=== PATIENT | female | born 1975 | race American Indian/Alaskan Native ===

== ENCOUNTER 2021-09-15 08:59 | Day surgery (SDC) | payer OTHER ==
[2021-09-15] MEDS ORDERED: LACTATED RINGERS 1,000 ML ONE (09:33)
--- NOTE | 2021-09-15 09:51 | Anesthesia Day of Surgery ---
Anesthesia Day of Surgery - Day of Surgery Patient Examined: Yes Patient H&P Reviewed: Yes Patient is NPO: Yes
--- NOTE | 2021-09-15 09:52 | Anesthesia Consultation ---
Anesthesia Consult and Med Hx Date of service: 09/15/21 - Airway Anesthetic Teeth Evaluation: Good ROM Head & Neck: Adequate Mental/Hyoid Distance: Adequate Mallampati Class: Class II Intubation Access Assessment: Good - Pre-Operative Health Status ASA Pre-Surgery Classification: ASA2 Proposed Anesthetic Plan: General - Pulmonary Hx Smoking: No Hx Sleep Apnea: No (EB PRE SCREEN LOW RISK) - Cardiovascular System Hx Hypertension: Yes (X 3 YRS) - Central Nervous System Hx Back Pain: Yes (FROM STONE) Hx Psychiatric Problems: No - Gastrointestinal Hx Gastroesophageal Reflux Disease: No - Hematic Hx Anemia: Yes (NOT RECENT) Hx Sickle Cell Disease: No - Other Systems Hx Cancer: No Hx Obesity: No
[2021-09-15] MEDS ORDERED: HYDROmorphone 1 MG/1 ML INJ IV PRN ×2 (10:00)
[2021-09-15] MEDS ORDERED: LACTATED RINGERS 1,000 ML IV SCH (10:00)
[2021-09-15] MEDS ORDERED: MIDAZOLAM 2 MG/2 ML INJ IV NR (10:00)
[2021-09-15] MEDS ORDERED: ONDANSETRON 4 MG/2 ML INJ IV PRN (10:00)
[2021-09-15] MEDS ORDERED: ceFAZolin/STERILE WATER 2 GM/20 ML SYRINGE IV NR (11:00)
[2021-09-15] MEDS ORDERED: propofoL 200 MG/20 ML VIAL IV ONE (11:38)
[2021-09-15] MEDS ORDERED: fentaNYL 100 MCG/2 ML INJ ONE (11:38)
[2021-09-15] MEDS ORDERED: ONDANSETRON 4 MG/2 ML INJ ONE (11:38)
[2021-09-15] MEDS ORDERED: LIDOCAINE MPF (2%) 20 MG/1 ML VIAL 5 ML ONE (11:38)
[2021-09-15] MEDS ORDERED: WATER FOR IRRIG STERILE 2000 ML IR ONE (12:47)
--- NOTE | 2021-09-15 12:50 | Short Stay Summary ---
Short Stay Documentation Date of service: 09/15/21 - History H&P: obtained from office - Allergies and Medications Current Medications: Allergies No Known Allergies Allergy (Verified 09/13/21 15:09) Home Medications Medication Instructions Recorded Confirmed Last Taken Type Ibuprofen [Motrin] 800 mg PO Q8HR PRN 09/13/21 09/13/21 Unknown History Losartan [Cozaar] 100 mg PO QDAY 09/13/21 09/13/21 Unknown History Rosuvastatin Calcium [Crestor] 20 mg PO DAILY 09/13/21 09/13/21 Unknown History Zolpidem [Ambien] 5 mg PO QHS PRN 09/13/21 09/13/21 Unknown History oxyCODONE /ACETAMINOPHEN [Percocet 1 tab PO Q6HR PRN 09/13/21 09/13/21 Unknown History 5/325] traMADoL [Ultram] 50 mg PO Q4HR PRN 09/13/21 09/13/21 Unknown History Active Medications Cefazolin Sodium (Cefazolin/Sterile Water 2 Gm/20 Ml Syringe) 2 gm IV PREOP NR Stop: 09/15/21 13:00 Hydromorphone HCl (Hydromorphone 1 Mg/1 Ml Inj) 0.25 mg IV Q10MIN PRN PRN Reason: Pain, Moderate (4-6) Stop: 09/15/21 20:00 Hydromorphone HCl (Hydromorphone 1 Mg/1 Ml Inj) 0.5 mg IV Q10MIN PRN PRN Reason: Pain , Severe (7-10) Lactated Ringer's (Lactated Ringers) 1,000 mls @ 125 mls/hr IV DIRECT DALY Last Admin: 09/15/21 10:38 Dose: 125 mls/hr Midazolam HCl (Midazolam 2 Mg/2 Ml Inj) 2 mg IV PREOP NR Stop: 09/15/21 23:59 Last Admin: 09/15/21 10:36 Dose: 2 mg - Brief post op/procedure progress note Date of procedure: 09/15/21 Pre-op diagnosis: bilat hyro Post-op diagnosis: same Procedure: cysto, bilat rpg, left ureteroscopy stent with external string Anesthesia: GETA Surgeon: JANE DIXON Estimated blood loss: none Pathology: none Condition: stable - Hospital course Hospital course: bactrim, norco, post op info on chart - Disposition Disposition: 01 HOME / SELF CARE / HOMELESS Short Stay Discharge Plan Follow up with: CHEYENNE JUNIOR MD [Primary Care Provider] - 7 Days
--- NOTE | 2021-09-15 14:08 | Fluoroscopy Report ---
FLUOROSCOPY RETROGRADE UROGRAPHY INDICATION: HYDRONEPHROSIS. COMPARISON: None. IMPRESSION: 16.2 seconds of fluoroscopy time was provided by radiology during retrograde urography b y the urologist. 10 fluoroscopic images are presented demonstrating bilateral retrograde pyelograms, left ureteroscopy and placement of a left ureteral stent. Signer Name: Marlon Thomas Jr, MD Signed: 09/15/2021 2:03 PM Workstation Name: [id number]
[2021-09-15 14:16] VITALS: BP 148/82
--- NOTE | 2021-09-15 14:43 | Operative Report ---
DATE OF SURGERY: 09/15/2021 PREOPERATIVE DIAGNOSIS: Bilateral hydronephrosis, left flank pain. POSTOPERATIVE DIAGNOSIS: Bilateral hydronephrosis, left flank pain. PROCEDURES PERFORMED: Cystoscopy, bilateral retrograde pyelograms, left ureteroscopy, double-J stent (6-[place] 24 cm with an external string). SURGEON: Ronnie Sands MD ANESTHESIA: General. ESTIMATED BLOOD LOSS: Minimal. FLUIDS: Crystalloid. COMPLICATIONS: No complications. INDICATIONS: This patient is a 46-year-old female seen by Dr. Parveen Glasgow. She underwent CT of the abdomen and pelvis on 08/31/2021 for pain. She has a history of fibroids, underwent POCKET STITCHER ablation in the past, no history of stones, but presents now for endoscopic evaluation. FINDINGS: No obvious stone, no tumors in the bladder, did have some mild stenosis of the distal left ureter. I was able to advance the scope. DESCRIPTION OF PROCEDURE: The patient was taken to the operative suite, placed in a supine position. After adequate general anesthesia, placed in the dorsal lithotomy position, prepped and draped in a sterile fashion. Pancystourethroscopy was performed with a 22-[place] Storz cystoscope. No bladder pathology. No tumors or stones were noted. Both ureteral orifices in normal position. Bilateral retrograde pyelograms were obtained with an 8-[place] George catheter and 8 mL of contrast. No filling defects or obstruction. There was some narrowing of the left ureter prompting further evaluation. Two 0.035 Glidewires were placed under fluoroscopic guidance. Rigid ureteroscopy to the renal pelvis was performed. The distal ureter did have some mild narrowing, which I was able to advance the scope. No stone or tumor could be appreciated. A 6-[place] 24 cm double-J stent with an external string was then placed under fluoroscopic guidance as well as bladder was drained. She was extubated and taken to the recovery room. She will go home on Bactrim and [place]. TID: [id number] RECEIPT: [id number] JERRY/HARJEET
== END 2021-09-15 13:55 | disposition home or self-care (01) ==
LOC: OR 08:59
PROVIDERS: ATTEND Urology
DX: N13.30 Unspecified hydronephrosis (principal); R10.9 Unspecified abdominal pain; E78.00 Pure hypercholesterolemia, unspecified; I10 Essential (primary) hypertension; Z79.899 Other long term (current) drug therapy; Z98.51 Tubal ligation status; Z98.890 Other specified postprocedural states; Z87.442 Personal history of urinary calculi; Z86.2 Personal history of diseases of the blood and blood-forming organs and certain disorders involving the immune mechanism
CPT/HCPCS: 52332; 52351; 74420; 81025; C1758; C1769; C1889; J0690; J2250; J2405; J2704; J3010; J7120; Q9967